=== PATIENT | female | born 1990 ===

== ENCOUNTER 2017-05-09 23:08 | Emergency (ER) | payer MEDICAID, SELFPAY ==
[2017-05-10 01:24] VITALS: BMI 27.5
[2017-05-10 05:27] VITALS: BP 104/66; PULSE 78; TEMP 99; O2SAT 100
--- NOTE | 2017-05-10 07:55 | OBDCSUM ---
Datetime: 05/10/2017 00:31 Discharged to, Provider: Home Follow up at, Provider: Dr. Perera Disch Instr Activity: Normal activity Disch Instr Diet: Regular Discharge Diagnosis, Provider: Bela Labor - Undelivered Discharge Time: 05/10/2017 00:31 Follow up in weeks, Provider: 05/11/2017 as scheduled @ 09:30 am. Disch Referrals: None
--- NOTE | 2017-05-10 07:55 | OBHP ---
Datetime: 05/10/2017 00:34 IP Adm Impression: Term, intrauterine IP Admit Plan: Discharge home Admit Comment, IP Provider: 26 y/o female with IUP at 38.3 wks gestation as per 14wk U/S with E DD on 05/20 presents with complaints of throbbing abdominal and back pain q 15min starting at 8pm. St ates she feels like she is having contractions. Denies dysuria, vaginal bleeding, loss of fluid, CP, SOB, fever, n/v/d. PNC: Unremarkable. GBS negative, Blood type O+, No Hx of UTI's, PNC labs unremarkable. Next appoin tment 05/11. Last U/S at 37wks no placenta previa, cephalic, appropriate EFW and SANTINO OBsHx: 08/09, term, no complications PMHx: Hx of asymptomatic pituitary adenoma SurgHx: Cholecystectomy 2014 Meds: PNV, Ferrous So4 Allergies: NKDA Social: Denies smoking, alcohol, and drug use Vitals: BP 104/66 HR 84 Afebrile Physical: General: NAD CVS: RRR, normal S1, S2, no murmurs Lungs: Clear to auscultation BL Abdomen: Gravid, NT, no CVA tenderness Extremities: no edema Bimanual Exam: cervix closed FHR: 130-140's, moderate variability, + accelerations, no decelerations (Category I) Abdominal U/S: Cephalic presentation Assessment: IUP at 38wks gestation, not in labor, FHT reassuring Plan: Discharge, Labor precautions given, F/u with OB tomorrow as scheduled (05/11). Patient made aware and verbalized understanding. Discussed case with OB attending Dr. Sofia Caceres PGY1 OB Hospitalist note: This pt was seen and examined by me. Agree with above note. MAHNDO Pelvic Type - PN: Adequate Extremities - PN: Normal Abdomen - PN: Normal Back - PN: Normal Breast - PN: Normal Lungs - PN: Normal Heart - PN: Normal Thyroid - PN: Normal Neurologic - PN: Normal HEENT - PN: Normal General - PN: Normal Comments, ACOG Physical Exam: ROS: General: no weakness; no fatigue HEENT: no SORIA; no visual dist CV: no palpitations; no no CP GI: no N/V no diarhea : no F/U/D MS: No joint pain IP Hx Assessment: The History has been Reviewed and is Current Vital Signs Provider: Reviewed; Within Normal Limits IP Chief Complaint: Uterine contractions Genitourinary Exam: Normal DTRs - PN: Normal
== END 2017-05-10 00:42 | disposition home or self-care (01) ==
LOC: H.EROB2 23:08
DX: O47.1 False labor at or after 37 completed weeks of gestation (principal); Z3A.37 37 weeks gestation of pregnancy

== ENCOUNTER 2017-05-19 13:48 | Inpatient (IN) | payer MEDICAID, SELFPAY ==
[2017-05-19 14:38] VITALS: BMI 28.8
[2017-05-19] MEDS ORDERED: Lactated Ringer's 1,000 ML IV SCH ×4 (14:45→18:00)
--- NOTE | 2017-05-19 15:02 | OBADHP ---
Datetime: 05/19/2017 14:40 Admit Comment, IP Provider: Patient is @ 39.5 wks with vaginal bleeding, +FM, no leaking, mi nimal contractions. Patient has had no anetpartum issues, medical problem include history of pituitar y adenoma 2 years ago, treated with medication and resolved. In pt saw Nuerology and MFM, l ast Prolactin level was 292 in 02/2017. Otherwise no other medical problems, previous x 1, previo us history of Cholecystectomy, no allergies, only taking PNV, no other problems VE=5/50/-2 TIP=377 mod ester, +accels, no decels TOCO=ctxning q 6-8 mins A/P 1. Patient is admitted in labor. Ve=50/-2. WIll admit, start IVF, CBC, type and screen, 2. Patient does not want pain medication at this time 3. Patient currently has no further management needed for the resolved pituitary adenoma Pelvic Type - PN: Adequate Extremities - PN: Normal Abdomen - PN: Normal Back - PN: Normal Breast - PN: Normal Lungs - PN: Normal Heart - PN: Normal Thyroid - PN: Normal Neurologic - PN: Normal HEENT - PN: Normal General - PN: Normal FHR - Baseline A Provider: 140 Contraction Comments Provider: ctxning q 6-8 mins Vital Signs Provider: Reviewed; Within Normal Limits IP Chief Complaint: Uterine contractions NICHD Variability Prov Fetus A: Moderate 6-25bpm NICHD Accel Fetus A IP Provider: [id number] NICHD Decel Fetus A IP Provider: None Dilatation, Provider: 5 Effacement, Provider: 50 Station, Provider: -2 Genitourinary Exam: Normal DTRs - PN: Normal IP Adm Impression: Term, intrauterine IP Admit Plan: Admit to unit; Initiate labor induction protocol Datetime: 05/10/2017 00:34 Comments, ACOG Physical Exam: ROS: General: no weakness; no fatigue HEENT: no SORIA; no visual dist CV: no palpitations; no no CP GI: no N/V no diarhea : no F/U/D MS: No joint pain IP Hx Assessment: The History has been Reviewed and is Current
[2017-05-19 15:37] LABS: BASO % 0.6 % (0.0-2.0); EOS # 0.1 K/uL (0.0-0.7); EOS % 0.9 % (0.0-4.0); HEMATOCRIT 37.1 % (34.0-47.0); LYMPH # 1.6 K/uL (1.0-4.3); LYMPH % 20.2 % (20.0-40.0); MEAN CELL VOLUME 82.4 fl (81.0-99.0); MEAN CORPUSCULAR HEMOGLOBIN 27.5 pg (27.0-31.0); MEAN CORPUSCULAR HGB CONC 33.4 g/dL (33.0-37.0); MEAN PLATELET VOLUME 9.3 fl (7.2-11.7); MONO # 0.8 K/uL (0.0-0.8); MONO % 9.8 % (0.0-10.0); NEUT # 5.3 K/uL (1.8-7.0); NEUT % 68.5 % (50.0-75.0); RED CELL DISTRIBUTION WIDTH 14.8 % (11.5-14.5); WHITE BLOOD COUNT 7.8 K/uL (4.8-10.8)
[2017-05-19] MEDS ORDERED: Fentanyl/Bupivacaine HCl 250 ML EPI ONE (16:31)
[2017-05-19] MEDS ORDERED: Bupivacaine HCl 0.25% PF (10 ml) Inj ONE (16:32)
[2017-05-19] MEDS ORDERED: Lidocaine 1% Inj (20ml) ONE (19:54)
[2017-05-19] MEDS ORDERED: Oxytocin 30 units/LR 500ML 30 U/500 ML BAG IV ONE ×2 (19:56→20:22)
--- NOTE | 2017-05-19 21:50 | OBPN ---
Datetime: 05/19/2017 20:44 IP Progress Impression: Normal progression of labor IP Informed Consent Obtain: Vaginal Delivery IP Procedures: Sterile Vag Exam IP Progress Plan: Continue present management Membranes, Provider: Ruptured Amniotic Fluid Color, Provider: Meconium, Light Contraction Comments Provider: q 2-3 mins FHR - Baseline A Provider: 140 IP Progress Note Comment: Patient evaluated, comfortable s/p epidural VE=7/50/-1. AROM, meconium [id number] mod ester, +accels, no decels TOCO = ctxning q 2-3 mins A/P 1. Patient progressing in labor, now 7cm, AROM, will continue with Pitocin for augmentation 2. CEFM and TOCO 3. Re-evaluate as needed Vital Signs Provider: Reviewed; Within Normal Limits NICHD Accel Fetus A IP Provider: [id number] NICHD Variability Prov Fetus A: Moderate 6-25bpm Dilatation, Provider: 7 Effacement, Provider: 50 Station, Provider: -1 NICHD Decel Fetus A IP Provider: None
[2017-05-20] MEDS ORDERED: Benzocaine/Menthol SPRAY TOP PRN ×2 (01:27→04:06)
[2017-05-20] MEDS ORDERED: Oxycodone/Acetaminophen 5/325 mg Tab PO PRN ×4 (01:27→04:06)
--- NOTE | 2017-05-20 01:33 | OBDS ---
DELIVERY PERSONNEL Delivery Doctor: Say Don MD MATERNAL INFORMATION Delivery Anesthesia: Epidural Provider Comments: of live female over intact perineum in MARZENA presentation, followed by shoulders and rest of , 6lbs 14oz, 04/01, placenta delivered spontaneously, cord blood obtained x 2, fundus firm, [id number], first degree laceration repaired with 3-0 vicryl rapide, patient otherwis e tolerated procedure well LABOR SUMMARY EDC: 05/20/2017 00:00 No. Babies in Womb: 1 Attempted: No Labor Anesthesia: Epidural LABOR INFORMATION Reason for Induction: Not Applicable Oxytocin: N/A Group B Beta Strep: Negative MEMBRANES Membranes Rupture Method: Artificial Amniotic Fluid Color: Light Meconium (Annotations: Data stored by [facility] on behalf of user) Amniotic Fluid Amount: Small Amniotic Fluid Odor: Normal BABY A INFORMATION Born in Route : No : N/A IDENTIFICATION/MEDS BABY A ID Band Number: [id number] ID Band Location: Left Leg; Left Arm
[2017-05-20] MEDS ORDERED: Oxytocin 30 units/LR 500ML 30 U/500 ML BAG IV ONE (04:06)
[2017-05-20] MEDS ORDERED: Lactated Ringer's 1,000 ML IV SCH ×2 (04:06)
[2017-05-20 07:45] LABS: HEMATOCRIT 34.5 % (34.0-47.0); MEAN CELL VOLUME 82.6 fl (81.0-99.0); MEAN CORPUSCULAR HGB CONC 32.6 g/dL (33.0-37.0); RED CELL DISTRIBUTION WIDTH 14.5 % (11.5-14.5); WHITE BLOOD COUNT 12.6 K/uL (4.8-10.8)
[2017-05-21] MEDS ORDERED: Influenza Vaccine 18yr & older 0.5 ML/45 MCG SYR IM ONE (09:00)
--- NOTE | 2017-05-21 10:07 | OBPPN ---
Datetime: 05/21/2017 08:14 PP Pain Prov: Within normal limits PP Nausea Prov: Denies PP Flatus Prov: Yes PP BM Prov: No PP Breasts Prov: Not Done PP Heart Prov: Normal PP Lungs Prov: Normal PP Abdomen/Uterus Prov: Normal PP Lochia Prov: Normal PP Vulva/Perineum Prov: Not Done PP CVA Tenderness Prov: Normal PP Extremities Prov: Normal PP Progress Prov: Normal PP Impression Prov: Normal progression PP Plan Prov: Continue present management PP Progress Note Prov: 26 y/o now seen and examined at bedside this morning. Reports pain is c ontrolled with pain medications. Ambulating well w/o dizziness. Pt reports passing gas per rectum an d no BM yet. Voiding freely with no blood noted. Lochia is less than menses. Denies CP, dyspnea, naus ea, vomiting or calf pain. Physical Exam: General: A_O, resting comfortably in bed, NAD HEENT: white sclera, pink conjunctiva, oral mucosa moist. Lungs: CTA B/L, no wheezing, rhonchi or rales CVS: RRR, S1, S2 NL ABD: ND, +BS; EXT: no edema, negative Ana Lilia's sign, calves non-tender Neuro/psych: AAOX3, no grossly focal deficit, preserved affect and mood. Assessement: 26 yo s/p PPD#1 Plan: Continue with regular diet as tolerated. Percocet and Ibuprofen for pain management Encourage and ambulation. Hx resolved pituitary adenoma, currently required no further management. Anticipate discharge tomorrow. Sultan Guardado, PGY1 Addendum by Dr. Don: Patient evaluated independently and I agree with the above. Patient is PPD #1, continue routine recommendations Vital Signs Provider PP: Reviewed; Within Normal Limits
--- NOTE | 2017-05-22 13:24 | OBDCSUM ---
Datetime: 05/22/2017 06:31 Discharged to, Provider: Home Follow up at, Provider: [facility] Disch Instr Activity: Normal activity; May be up to bathroom; May be up for meals; May Shower Disch Instr Diet: Regular Discharge Instructions, Provider: Routine instructions given Discharge Diagnosis, Provider: Term Delivered Discharge Time: 05/22/2017 13:23 Follow up in weeks, Provider: 4-6 weeks Disch Referrals: None Contraception discussed, Prov: Yes Disch Activity Restrictions: No sexual activity; Nothing in vagina - Stuart, tampons, douche Discharge Comment, Provider: DOA: 05/20 EGA: 39/6 wks Diagnosis: L_D Summary: AROM, with 1 st degree laceration DOD: 05/20 01:11 NB: Female : 9,9 Weight: 3130g Post- Summary: No complications during post- period. Lochia<menses. Rubella/TDAP/Flu u p to date. CBC post- 11.3/34.5 Discharge Date: Discharge Instructions: 1. Encourage 2. PNV 1 tab po daily 3. Ibuprofen 600mg 1tab po porn q6 for moderate pain 4. Ambulatory as tolerated, nothing per vagina, no sex 5. Contraception discussed; pt will use condoms 6. ER precautions give: if heavy bleeding or fever without relief from Tylenol, go to ED 7. F/U at [facility] in 1-2 or 4-6 weeks. Appt will be scheduled today and patient will be made aware katalina or to discharge. Anastacia Berry, PGY1 Contraception after Delivery: Foam/Condoms
--- NOTE | 2017-05-22 13:24 | OBPPN ---
Datetime: 05/22/2017 06:31 PP Pain Prov: Within normal limits PP Nausea Prov: Denies PP Flatus Prov: Yes PP BM Prov: Yes PP Breasts Prov: Normal PP Heart Prov: Normal PP Lungs Prov: Normal PP Abdomen/Uterus Prov: Normal PP Lochia Prov: Normal PP Vulva/Perineum Prov: Not Done PP CVA Tenderness Prov: Not Done PP Extremities Prov: Normal PP C/S Incision Prov: Not Applicable PP Progress Prov: Normal PP Comments Phys Exam Prov: bilateral nipple erythema, no excoriations PP Impression Prov: Normal progression PP Plan Prov: Continue present management; Discharge PP Progress Note Prov: PPD 2 S: 26 y/o seen and examined at bedside. No acute overnight events. Pt reports denies pelvic p ain controlled with pain meds. OOB/Ambulation well without dizziness. Breast/Bottle feeding without d ifficulty. Tolerating PO diet well. Lochia is similar to menses volume. Voiding freely with no blood noted. +Bowl movement, pass gas per rectum. Denies fever/chills, diarrhea, [place]/vomiting, CP/SOB, l ightheadedness, calf pain. O:BP 101/73, HR 79, Tmax 98.3 (No hypertensive episodes) Blood Type: O+ Rubella Immune, Up to date on TDAP and Flu vaccines Physical exam: General: A_O HEENT: White Sclera, pink conjunctiva, oral mucosa moist Breast: enjorged/non tender/no lesions CVS: RRR, nrml S1, S2, no murmurs Lungs: Clear to auscultation BL Abdomen: non distended, +BS, firm fundus @ umbilical level. Soft, appropriate TTP Neuro/Psych: AAO x3, preserved affect and mood Assessment: 26 Y/o now s/p delivery on date 05/20 with 1st degree laceration. Pt afebrile for 48 marti rs, tolerating pain with meds, tolerating oral intake, adequate urine output. Doing well on PPD#2. Plan: Anticipating D/C today, Scripts in chart, D/C order placed Percocet 5/325mg 1-2 tablets po q6 for mod/sev pain Ibuprofen 600mg 1 tab q6 Sen[place]ot 17.2 mg po QHS Encourage and ambulation Discussed contraception- pt is planning to use condoms Anastacia Berry, PGY1 OB attending addendum: Patient seen and examined by me. Agree with above assessment and plan. Benefits of breast-feeding reinforced. Lanolin to breast nipple recommended. Method of breast-feeding to minimize apple irritation and o r excoriations discussed and patient instructed. IP PP Procedures: None Vital Signs Provider PP: Reviewed; Within Normal Limits
[2017-05-22 18:00] VITALS: BP 108/70; PULSE 70; RESP 20; TEMP 98.5; O2SAT 100
== END 2017-05-22 13:20 | disposition home or self-care (01) | DRG 373 ==
LOC: H.EROB2 13:48 → H.L&D 14:37 → H.OB/GYN 05-20 04:43
PROVIDERS: ADMIT Obstetrics & Gynecology; ATTEND Obstetrics & Gynecology
PROC: 10E0XZZ Delivery of Products of Conception, External Approach (ICD-10-PCS; principal; 2017-05-19)
PROC: 4A1HXCZ Monitoring of Products of Conception, Cardiac Rate, External Approach (ICD-10-PCS; 2017-05-19)
PROC: 0HQ9XZZ Repair Perineum Skin, External Approach (ICD-10-PCS; 2017-05-19)
DX: O77.0 Labor and delivery complicated by meconium in amniotic fluid (principal); O70.0 First degree perineal laceration during delivery; Z3A.39 39 weeks gestation of pregnancy; Z37.0 Single live birth